=== PATIENT | female | born 1955 | race Caucasian/White ===

== ENCOUNTER → 2017-08-20 | Outpatient (CLI) | payer OTHER | LOC: M WHC 07:44 | DX: Z12.31 Encounter for screening mammogram for malignant neoplasm of breast (principal) | CPT/HCPCS: 77067 ==

== ENCOUNTER → 2018-11-03 | Outpatient (CLI) | payer OTHER ==
--- NOTE | 2018-11-03 11:14 | REPMRS ---
Patient History The patient states she had a clinical breast exam in 08/29 Patient is postmenopausal. Family history of breast cancer at age 50 or over in maternal cousin, breast cancer at age 50 or over in maternal cousin, prostate cancer at age 50 or over in paternal cousin. 3D TOMOSYNTHESIS WAS PERFORMED. Digital Woman Screen Mammo: November 03, 2018 - Exam #: [id number] Bilateral CC and MLO view(s) were taken. Technologist: Jolie Perkins, Technologist Prior study comparison: August 20, 2017, digital woman screen mammo performed at [facility] [employer] [facility]. August 07, 2016, digital woman screen mammo performed at [facility] [employer] [facility]. FINDINGS: The breast tissue is heterogeneously dense. This may lower the sensitivity of mammography. There has been no change in the appearance of the mammogram from the prior studies. There is a moderate amount of residual fibroglandular tissue which is fairly symmetric. There is no interval development of dominant mass, areas of architectural distortion, or clustered microcalcification typical of malignancy. Assessment: BI-RADS/ACR category 1 mammogram. Negative Mammogram. Recommendation Routine screening mammogram in 1 year (for women over age 40). This mammogram was interpreted with the aid of an FDA-approved computer-aided dectection system. Electronically Signed By: Sylvain Martinez MD 11/03/18 [id number]
== END ==
LOC: M WHC 08:40
PROVIDERS: ATTEND Internal Medicine
DX: Z12.31 Encounter for screening mammogram for malignant neoplasm of breast (principal)

== ENCOUNTER → 2020-08-18 | Outpatient (REF) | payer OTHER, MEDICARE | LOC: M SFHCWAGY 17:21 | PROVIDERS: ATTEND Advanced Practice Midwife | DX: Z12.4 Encounter for screening for malignant neoplasm of cervix (principal) | CPT/HCPCS: 87624; G0123 ==

== ENCOUNTER → 2020-08-24 | Outpatient (CLI) | payer MEDICARE, OTHER ==
--- NOTE | 2020-08-24 10:56 | REP ---
INDICATION: Z12.31 SCREENING MAMMO. Family history breast cancer in maternal cousin. COMPARISON: 11/03/2018 as well as other prior exams. TECHNIQUE: MLO and CC views performed bilaterally with tomosynthesis. FINDINGS: Mild to moderate fibroglandular tissue scattered bilaterally. A skin mole is seen in the medial right breast. No new mass or architectural distortion is seen bilaterally. However there are 2 areas of tiny calcifications in the upper outer quadrant of the left breast. Magnification views are recommended. The Volpara volumetric breast density pattern is B. IMPRESSION: BIRADS/ACR category 0, incomplete. Two areas of tiny calcifications in the upper outer quadrant of the left breast. Recommend magnification views to further evaluate. This patient's Tyrer-Cuzick lifetime breast cancer risk assessment score is 7.7%. This mammogram was interpreted with the aid of an FDA-approved computer-aided detection system. The patient states she had a clinical breast exam in August 2020. The patient letter being requested is M0. RECOMMENDATION: Recommend magnification views left breast. <Electronically signed by Sylvain Martinez > 08/24/20 2037
== END ==
LOC: M WHC 09:48
PROVIDERS: ATTEND Advanced Practice Midwife
DX: R92.2 Inconclusive mammogram (principal)

== ENCOUNTER → 2020-09-06 | Outpatient (CLI) | payer MEDICARE, OTHER ==
--- NOTE | 2020-09-06 10:06 | REP ---
INDICATION: ADDITIONAL VIEWS LT BREAST. COMPARISON: Comparison prior mammography August 24, 2020, November 03, 2018, and August 20, 2017. TECHNIQUE: Magnified focal spot-compression CC, mL, and MLO views of the left breast are obtained. This mammogram was interpreted with the aid of an FDA-approved computer-aided detection system. FINDINGS: There are 2 groupings of poly more fake microcalcifications each in the upper outer quadrant of the left breast. These are from each other by approximately 5 cm. There are separate micro calcific groupings. They appear to be new. The Volpara volumetric breast density pattern is b. : IMPRESSION: BIRADS/ACR category 4 suspicious left breast mammographic findings. Biopsy should be considered. This patient's Tyrer-Cuzick lifetime breast cancer risk assessment score is 7.7%. RECOMMENDATION: Stereotactic needle biopsy of 2 micro calcific targets left breast with marker clip placement and post clip placement unilateral left breast mammography.. The patient letter being requested is M4. <Electronically signed by Rigo Virgen > 09/06/20 [id number]
== END ==
LOC: M WHC 09:28
PROVIDERS: ATTEND Advanced Practice Midwife
DX: R92.0 Mammographic microcalcification found on diagnostic imaging of breast (principal); Z12.31 Encounter for screening mammogram for malignant neoplasm of breast

== ENCOUNTER → 2020-09-27 | Outpatient (CLI) | payer MEDICARE ==
[~2020-09-27] MED LIST: VITMTA PO
[2020-09-27 12:01] VITALS: BP 130/84
--- NOTE | 2020-09-27 12:29 | REP ---
INDICATION: R92.8 ABN MAMMO LT BREAST,STEREOTACTIC BIOPSY. COMPARISON: Comparison mammography September 06, 2020.. TECHNIQUE: Two specimen radiographs. FINDINGS: The 1st specimen radiograph demonstrates poly morph ECMO acro calcifications in 3 of the 5 core specimens. The 2nd specimen radiograph demonstrates poly morph act microcalcifications in 3 of the 5 core specimens. IMPRESSION: There are microcalcifications from the target groupings of microcalcification in both specimen radiographs. <Electronically signed by Rigo Virgen > 09/27/20 [id number]
--- NOTE | 2020-09-27 12:30 | REP ---
INDICATION: R92.8 ABN MAMMO LT BREAST,STEREOTACTIC BIOPSY. COMPARISON: Comparison mammography 06 September 2020.. TECHNIQUE: Stereotactic needle biopsy guidance. FINDINGS: Stereotactic guidance is provided to Dr. Manriquez performed stereotactically guided needle biopsy procedure. Two separate micro calcific targets. Clip placement. IMPRESSION: Stereotactic needle biopsy guidance. Procedural imaging. <Electronically signed by Rigo Virgen > 09/27/20 [id number]
--- NOTE | 2020-09-27 13:15 | REP ---
INDICATION: R92.8 ABN MAMMO LT BREAST,POST STEREOTACTIC BIOPSY. Marker clip placement views. COMPARISON: Comparison mammography 06 September 2020. TECHNIQUE: Craniocaudal and mediolateral oblique views of the left breast are obtained. FINDINGS: There are 2 needle biopsy marker clips noted in the upper outer quadrant left breast. Both of these are in good position relative to the previously seen target micro calcific groupings. Both of these micro calcific groupings have been removed and are no longer visible. IMPRESSION: Both marker clips are noted in good position. <Electronically signed by Rigo Virgen > 09/27/20 2094
--- NOTE | 2020-09-30 19:27 | ROOPDOC ---
[facility] Report Of Operation Report of Operation DATE OF PROCEDURE: 09/27/20 DIAGNOSIS: Left breast suspicious two clusters of calcifications PROCEDURE: Left breast stereotactic biopsy of 2 separate clusters with 2 clips placement SURGEON: Vu Lopez BLOOD LOSS: minimal Lidocaine 1% LOT [id number] Expiration 11/2023 Sodium Bicarbonate 4% LOT [id number] Expiration 11/2020 MEDIAL CLUSTER OF CALCS Hydromark clip LOT [id number] Expiration 04/2023 SHAPE 3 Bx device: Stereotactic Mammotome Revolve Dual Vacuum- assisted Biopsy System 10 G LOT [id number] Expiration 04/2023 REF [id number] LATERAL CLUSTER OF CALCS Hydromark clip LOT [id number] 09/2021 SHAPE 1 Bx device: Stereotactic Mammotome Revolve Dual Vacuum- assisted Biopsy System 10 G LOT [id number] Expiration 08/2023 REF [id number] Informed consent was obtained in the preop area. The most common risk and possible complications including bleeding, hematoma, bruising, infection, injury to surrounding structures were explained to the patient and patient expressed understanding. Patient was taken to the procedure room and placed prone on the One[facility] Prone Breast Biopsy table with the left breast hanging through the table aperture. Left breast was placed into Cranio-Caudal compression and Heel Burnisher catina images were taken focusing initially on the medial cluster of calcifications. Suspicious medial left breast calcifications were identified on the catina images and target was set. CC approach from the bottom was chosen for this procedure. At this time, since we were able to confirm visibility of the suspicious medial calcifications and patient tolerated prone positioning allowing to proceed with the biopsy, appropriate time out was done stating patients name, date of , and the procedure to be performed. The left breast in CC compression was prepped in the usual fashion. Plain Lidocaine 1% and 4% sodium bicarbonate 10:2 mix was used to anesthetize the skin, the biopsy site and tissues along the anticipated biopsy tract. Small skin incision was made with blade number 11. Mammotome 10 G stereotactic breast biopsy device was inserted through the incision and advanced to the previously set coordinates marking the target lesion. Pre-fire imaging was taken to assure appropriate positioning. At this time, Mammotome 10 G breast biopsy device was fired and vacuum assisted biopsies were collected. The biopsy samples were investigated with The [employer] system and calcifications were observed. Biopsy samples were then placed in the formaldehyde, marked with patients name and left MEDIAL breast biopsy site, and sent to pathology for evaluation. SHAPE 3 Hydromark clip was placed into the Mammotome biopsy device channel and deployed at the site of medial calcifications. Post-deployment imaging was done to assure appropriate clip deployment. Clip was noted in the left medial breast. At this point, paddle CC compression of the left breast was released and manual pressure was held to decrease harmonic effect and to assure hemostasis. No bleeding was noted upon removal of the pressure. Since hemostasis was achieved and patient tolerated well the first biopsy site, decision was made to proceed with the stereotactic biopsy of more lateral left breast calcifications. Left breast Cranio-Caudal compression repositioned toward the lateral aspect of the breast and Heel Burnisher catina images were taken focusing now on the lateral cluster of calcifications. Suspicious lateral calcifications were identified on the catina images and a second target was set. CC approach from the bottom was continued. The left breast in CC compression was prepped in the usual fashion. Plain Lidocaine 1% and 4% sodium bicarbonate 10:2 mix was used to anesthetize the sk in, the biopsy site and tissues along the anticipated biopsy tract. Small skin incision was made with blade number 11. Mammotome 10 G stereotactic breast biopsy device was inserted through the incision and advanced to the previously set coordinates marking the target lesion. Pre-fire imaging was taken to assure appropriate positioning. At this time, Mammotome 10 G breast biopsy device was fired and vacuum assisted biopsies were collected. The biopsy samples were investigated with The [employer] system and calcifications were observed. Biopsy samples were then placed in the formaldehyde, marked with patients name and left LATERAL breast biopsy site, and sent to pathology for evaluation. SHAPE 1 Hydromark clip was placed into the Mammotome biopsy device channel and deployed. Post-deployment imaging was done to assure appropriate clip deployment. Clip was noted in the left lateral breast. At this point, paddle CC compression of the left breast was released and manual pressure was held to decrease harmonic effect and to assure hemostasis. No bleeding was noted upon removal of the pressure. Patient was slowly repositioned and placed into sitting position, and then assisted off the table. Post-biopsy mammogram of the left breast was obtained and showed 2 clips in expected positions. Postprocedural dressing was placed. Patient tolerated procedure well and was taken to the recovery unit in stable condition. Discharge instructions were discussed with the patient and patient expressed understanding. VU LOPEZ. Sep 30, 2020 19:27
== END ==
LOC: M WHCPRO 09:33
PROVIDERS: ATTEND Surgery
DX: N60.12 Diffuse cystic mastopathy of left breast (principal); R92.8 Other abnormal and inconclusive findings on diagnostic imaging of breast

== ENCOUNTER → 2021-03-01 | Outpatient (REF) | payer MEDICARE, OTHER | LOC: M LAB REF 19:04 | PROVIDERS: ATTEND Physician Assistant | DX: C44.319 Basal cell carcinoma of skin of other parts of face (principal); L03.012 Cellulitis of left finger ==

== ENCOUNTER → 2021-04-23 | Outpatient (CLI) | payer MEDICARE, OTHER ==
--- NOTE | 2021-04-23 09:35 | REP ---
INDICATION: R92.8 ABN LEFT BREAST MAMMO. COMPARISON: Multiple the latest 09/27/2020 TECHNIQUE: Digital CC and MLO views of the left breast were obtained using both 2D and 3D modalities and compared to the prior exams. Today's examination was a follow-up examination for biopsy clip placement and to assess for any new abnormality. FINDINGS: The left breast is unchanged in size and shape. There are no suspicious bro soft tissue densities or spiculated masses. There is no internal architectural distortion. There are no suspicious calcifications. There are 2 biopsy clips identified both are unchanged. IMPRESSION: BIRADS/ACR category 2 mammogram. There are no suspicious findings. This mammogram was interpreted with the aid of an FDA-approved computer-aided detection system. The patient states she had a clinical breast exam in September 2020. The patient letter being requested is M1. RECOMMENDATION: Repeat screening mammography recommended 1 year (for women over 40). <Electronically signed by Anshu Powell > 04/23/21 0980
== END ==
LOC: M WHC 08:52
PROVIDERS: ATTEND Surgery
DX: R92.8 Other abnormal and inconclusive findings on diagnostic imaging of breast (principal)
CPT/HCPCS: 77065; G0279

== ENCOUNTER → 2021-08-30 | Outpatient (CLI) | payer MEDICARE | LOC: M WHC 10:18 | PROVIDERS: ATTEND Nurse Practitioner Women's Health | DX: Z12.31 Encounter for screening mammogram for malignant neoplasm of breast (principal); Z78.0 Asymptomatic menopausal state; Z86.018 Personal history of other benign neoplasm ==

== ENCOUNTER → 2021-11-27 | Outpatient (REF) | payer MEDICARE, OTHER | LOC: M SFHCDERM 19:05 | PROVIDERS: ATTEND Physician Assistant | DX: D23.71 Other benign neoplasm of skin of right lower limb, including hip (principal) ==

== ENCOUNTER → 2022-07-30 | Outpatient (REF) | payer MEDICARE | LOC: M SFHCDERM 14:56 | PROVIDERS: ATTEND Physician Assistant | DX: D49.2 Neoplasm of unspecified behavior of bone, soft tissue, and skin (principal); C44.91 Basal cell carcinoma of skin, unspecified ==

== ENCOUNTER → 2022-10-08 | Outpatient (CLI) | payer MEDICARE, OTHER | LOC: M WHC 13:34 | PROVIDERS: ATTEND Nurse Practitioner Family | DX: Z12.31 Encounter for screening mammogram for malignant neoplasm of breast (principal) ==

== ENCOUNTER → 2025-05-11 | Outpatient (REF) | payer OTHER, MEDICARE | LOC: M SFHCDERM 17:58 | PROVIDERS: ATTEND Physician Assistant | DX: C44.311 Basal cell carcinoma of skin of nose (principal) ==